=== PATIENT | female | born 1995 | race American Indian/Alaskan Native ===

== ENCOUNTER 2017-02-19 15:01 | Emergency (ER) | payer MEDICAID ==
[2017-02-19 15:39] VITALS: BP 105/69
[2017-02-19 16:19] LABS: Bacteria,Urine 1+ /HPF (Negative); Bilirubin,Urine SM (Negative); Blood,Urine LG (Negative); Mucus,Urine 3+ /HPF; Nitrite,Urine NEG (Negative)
[2017-02-19 16:21] LABS: RBC,Urine > 182.0 /HPF (0.0-6.0)
[2017-02-19 16:22] LABS: HCG Qualitative,Urine Negative (Negative)
[2017-02-19 16:24] LABS: Ictotest,Urine Negative (Negative)
[2017-02-19 16:54] LABS: Basophils % (Auto) 0.4 % (0.0-1.8); Eosinophils % (Auto) 0.2 % (0.0-4.3); Hematocrit 32.4 % (30.3-42.9); Hemoglobin 10.6 gm/dl (10.1-14.3); Lymphocytes % (Auto) 18.4 % (13.4-35.0); Mean Corpuscular HGB Conc 33 % (30-34); Mean Corpuscular Hemoglobin 28 pg (28-32); Mean Corpuscular Volume 85 fl (79-97); Monocytes # (Auto) 0.3 K/mm3 (0.0-0.8); Monocytes % (Auto) 6.2 % (0.0-7.3); Platelet Count 384 K/mm3 (140-440)
[2017-02-19 17:07] LABS: Alanine Aminotransferase 11 units/L (7-56); Albumin 4.1 g/dL (3.9-5); BUN/Creatinine Ratio 40; Blood Urea Nitrogen 20 mg/dL (7-17); Calcium 8.7 mg/dL (8.4-10.2); Hemolysis Index 3
== END 2017-02-19 22:54 | disposition left against medical advice (07) ==
LOC: ED 15:01
DX: Z53.21 Procedure and treatment not carried out due to patient leaving prior to being seen by health care provider (principal)
CPT/HCPCS: 36415; 80053; 81001; 81025; 85025

== ENCOUNTER 2018-03-01 23:23 | Inpatient (IN) | payer SELFPAY ==
[2018-03-02 00:53] LABS: Basophils % (Auto) 0.3 % (0.0-1.8); Hematocrit 32.9 % (30.3-42.9); Hemoglobin 10.9 gm/dl (10.1-14.3); Lymphocytes # (Auto) 0.8 K/mm3 (1.2-5.4); Lymphocytes % (Auto) 6.6 % (13.4-35.0); Mean Corpuscular HGB Conc 33 % (30-34); Mean Corpuscular Volume 86 fl (79-97); Monocytes # (Auto) 0.4 K/mm3 (0.0-0.8); Monocytes % (Auto) 3.5 % (0.0-7.3); Platelet Count 310 K/mm3 (140-440); Red Blood Count 3.81 M/mm3 (3.65-5.03); Red Cell Distribution Width 17.8 % (13.2-15.2)
[2018-03-02 01:08] LABS: Alanine Aminotransferase 9 units/L (7-56); Albumin 4.3 g/dL (3.9-5); BUN/Creatinine Ratio 28; Blood Urea Nitrogen 14 mg/dL (7-17); Calcium 8.9 mg/dL (8.4-10.2); Hemolysis Index 7
--- NOTE | 2018-03-02 03:05 | Emergency Department Report ---
ED General Adult HPI - General Chief complaint: Overdose Stated complaint: POSS OD Time Seen by Provider: 03/02/18 00:17 Source: EMS Mode of arrival: Stretcher Limitations: Other - History of Present Illness Initial comments: She has a 22-year-old female who presents with suicidal ideation. History is limited due to patient being sleepy. Patient was out in traffic and was detained by police due to suicidal ideation. She took 15 Benadryl pills to end her life and took some alcohol with it. Patient was acting erratically in the ER. Discussed with forced control patient will be medical cleared in 6 hours. - Related Data Allergies Allergy/AdvReac Type Severity Reaction Status Date / Time No Known Allergies Allergy Unverified 06/03/15 17:47 ED Review of Systems ROS: Stated complaint: POSS OD Other details as noted in HPI Comment: Unobtainable due to pts medical conditions (patient is too sleepy) Musculoskeletal: denies: joint swelling, arthralgia ED Past Medical Hx - Past Medical History Previous Medical History?: Yes Hx Hypertension: No Hx Diabetes: No Hx Deep Vein Thrombosis: No Hx Renal Disease: No Hx Sickle Cell Disease: No Hx Seizures: No Hx Asthma: No Hx HIV: No Additional medical history: anemic - Surgical History Past Surgical History?: No - Social History Smoking Status: Unknown if ever smoked Substance Use Type: Alcohol ED Physical Exam - General Limitations: Other General appearance: obtunded - Head Head exam: Present: atraumatic, normocephalic - Eye Eye exam: Present: normal appearance - ENT ENT exam: Present: mucous membranes moist - Neck Neck exam: Present: normal inspection - Respiratory Respiratory exam: Present: normal lung sounds bilaterally. Absent: respiratory distress - Cardiovascular Cardiovascular Exam: Present: regular rate, normal rhythm. Absent: systolic murmur, diastolic murmur, rubs, gallop - GI/Abdominal GI/Abdominal exam: Present: soft, normal bowel sounds - Extremities Exam Extremities exam: Present: normal inspection - Back Exam Back exam: Present: normal inspection - Neurological Exam Neurological exam: Present: other (somnolent ) - Psychiatric Psychiatric exam: Present: suicidal ideation - Skin Skin exam: Present: warm, dry, intact, normal color. Absent: rash ED Course Vital Signs 03/02/18 03/02/18 03/02/18 00:00 00:16 00:30 Temperature 99.0 F Pulse Rate 76 85 75 Respiratory 16 16 20 Rate Blood Pressure 97/54 97/54 97/54 O2 Sat by Pulse 98 Oximetry ED Medical Decision Making - Lab Data Result diagrams: 03/02/18 00:30 03/02/18 00:30 Lab Results 03/02/18 03/02/18 03/02/18 Range/Units 00:30 00:30 00:30 WBC 11.5 H (4.5-11.0) K/mm3 RBC 3.81 (3.65-5.03) M/mm3 Hgb 10.9 (10.1-14.3) gm/dl Hct 32.9 (30.3-42.9) % MCV 86 (79-97) fl MCH 29 (28-32) pg MCHC 33 (30-34) % RDW 17.8 H (13.2-15.2) % Plt Count 310 (140-440) K/mm3 Lymph % (Auto) 6.6 L (13.4-35.0) % [place] % (Auto) 3.5 (0.0-7.3) % Eos % (Auto) 0.0 (0.0-4.3) % Baso % (Auto) 0.3 (0.0-1.8) % Lymph # 0.8 L (1.2-5.4) K/mm3 [place] # 0.4 (0.0-0.8) K/mm3 Eos # 0.0 (0.0-0.4) K/mm3 Baso # 0.0 (0.0-0.1) K/mm3 Seg Neutrophils % 89.6 H (40.0-70.0) % Seg Neutrophils # 10.3 H (1.8-7.7) K/mm3 Sodium 139 (137-145) mmol/L Potassium 3.5 L (3.6-5.0) mmol/L Chloride 102.2 (98-107) mmol/L Carbon Dioxide 20 L (22-30) mmol/L Anion Gap 20 mmol/L BUN 14 (7-17) mg/dL Creatinine 0.5 L (0.7-1.2) mg/dL Estimated GFR > 60 ml/min BUN/Creatinine Ratio 28 % Glucose 83 (65-100) mg/dL Calcium 8.9 (8.4-10.2) mg/dL Total Bilirubin 0.20 (0.1-1.2) mg/dL AST 14 (5-40) units/L ALT 9 (7-56) units/L Alkaline Phosphatase 49 (35-129) units/L Total Protein 6.9 (6.3-8.2) g/dL Albumin 4.3 (3.9-5) g/dL Albumin/Globulin Ratio 1.7 % HCG, Qual (Negative) Urine Color (Yellow) Urine Turbidity (Clear) Urine pH (5.0-7.0) Ur Specific [place] (1.003-1.030) Urine Protein (Negative) mg/dL Urine Glucose (UA) (Negative) mg/dL Urine Ketones (Negative) mg/dL Urine Blood (Negative) Urine Nitrite (Negative) Urine Bilirubin (Negative) Urine Urobilinogen (<2.0) mg/dL Ur Leukocyte Esterase (Negative) Urine WBC (Auto) (0.0-6.0) /HPF Urine RBC (Auto) (0.0-6.0) /HPF U Epithel Cells (Auto) (0-13.0) /HPF Urine Mucus /HPF Salicylates < 0.3 L (2.8-20.0) mg/dL Urine Opiates Screen Urine Methadone Screen Acetaminophen (10.0-30.0) ug/mL Ur Barbiturates Screen Ur Phencyclidine Scrn Ur Amphetamines Screen U Benzodiazepines Scrn Urine Cocaine Screen U Marijuana (THC) Screen Drugs of Abuse Note Plasma/Serum Alcohol (0-0.07) % 03/02/18 03/02/18 03/02/18 Range/Units 00:30 00:30 00:30 WBC (4.5-11.0) K/mm3 RBC (3.65-5.03) M/mm3 Hgb (10.1-14.3) gm/dl Hct (30.3-42.9) % MCV (79-97) fl MCH (28-32) pg MCHC (30-34) % RDW (13.2-15.2) % Plt Count (140-440) K/mm3 Lymph % (Auto) (13.4-35.0) % [place] % (Auto) (0.0-7.3) % Eos % (Auto) (0.0-4.3) % Baso % (Auto) (0.0-1.8) % Lymph # (1.2-5.4) K/mm3 [place] # (0.0-0.8) K/mm3 Eos # (0.0-0.4) K/mm3 Baso # (0.0-0.1) K/mm3 Seg Neutrophils % (40.0-70.0) % Seg Neutrophils # (1.8-7.7) K/mm3 Sodium (137-145) mmol/L Potassium (3.6-5.0) mmol/L Chloride (98-107) mmol/L Carbon Dioxide (22-30) mmol/L Anion Gap mmol/L BUN (7-17) mg/dL Creatinine (0.7-1.2) mg/dL Estimated GFR ml/min BUN/Creatinine Ratio % Glucose (65-100) mg/dL Calcium (8.4-10.2) mg/dL Total Bilirubin (0.1-1.2) mg/dL AST (5-40) units/L ALT (7-56) units/L Alkaline Phosphatase (35-129) units/L Total Protein (6.3-8.2) g/dL Albumin (3.9-5) g/dL Albumin/Globulin Ratio % HCG, Qual Negative (Negative) Urine Color (Yellow) Urine Turbidity (Clear) Urine pH (5.0-7.0) Ur Specific [place] (1.003-1.030) Urine Protein (Negative) mg/dL Urine Glucose (UA) (Negative) mg/dL Urine Ketones (Negative) mg/dL Urine Blood (Negative) Urine Nitrite (Negative) Urine Bilirubin (Negative) Urine Urobilinogen (<2.0) mg/dL Ur Leukocyte Esterase (Negative) Urine WBC (Auto) (0.0-6.0) /HPF Urine RBC (Auto) (0.0-6.0) /HPF U Epithel Cells (Auto) (0-13.0) /HPF Urine Mucus /HPF Salicylates (2.8-20.0) mg/dL Urine Opiates Screen Urine Methadone Screen Acetaminophen < 5.0 L (10.0-30.0) ug/mL Ur Barbiturates Screen Ur Phencyclidine Scrn Ur Amphetamines Screen U Benzodiazepines Scrn Urine Cocaine Screen U Marijuana (THC) Screen Drugs of Abuse Note Plasma/Serum Alcohol < 0.01 (0-0.07) % 03/02/18 03/02/18 Range/Units 03:00 03:00 WBC (4.5-11.0) K/mm3 RBC (3.65-5.03) M/mm3 Hgb (10.1-14.3) gm/dl Hct (30.3-42.9) % MCV (79-97) fl MCH (28-32) pg MCHC (30-34) % RDW (13.2-15.2) % Plt Count (140-440) K/mm3 Lymph % (Auto) (13.4-35.0) % [place] % (Auto) (0.0-7.3) % Eos % (Auto) (0.0-4.3) % Baso % (Auto) (0.0-1.8) % Lymph # (1.2-5.4) K/mm3 [place] # (0.0-0.8) K/mm3 Eos # (0.0-0.4) K/mm3 Baso # (0.0-0.1) K/mm3 Seg Neutrophils % (40.0-70.0) % Seg Neutrophils # (1.8-7.7) K/mm3 Sodium (137-145) mmol/L Potassium (3.6-5.0) mmol/L Chloride (98-107) mmol/L Carbon Dioxide (22-30) mmol/L Anion Gap mmol/L BUN (7-17) mg/dL Creatinine (0.7-1.2) mg/dL Estimated GFR ml/min BUN/Creatinine Ratio % Glucose (65-100) mg/dL Calcium (8.4-10.2) mg/dL Total Bilirubin (0.1-1.2) mg/dL AST (5-40) units/L ALT (7-56) units/L Alkaline Phosphatase (35-129) units/L Total Protein (6.3-8.2) g/dL Albumin (3.9-5) g/dL Albumin/Globulin Ratio % HCG, Qual (Negative) Urine Color Yellow (Yellow) Urine Turbidity Clear (Clear) Urine pH 5.0 (5.0-7.0) Ur Specific [place] 1.028 (1.003-1.030) Urine Protein <15 mg/dl (Negative) mg/dL Urine Glucose (UA) Neg (Negative) mg/dL Urine Ketones 20 (Negative) mg/dL Urine Blood Neg (Negative) Urine Nitrite Neg (Negative) Urine Bilirubin Neg (Negative) Urine Urobilinogen 2.0 (<2.0) mg/dL Ur Leukocyte Esterase Neg (Negative) Urine WBC (Auto) 3.0 (0.0-6.0) /HPF Urine RBC (Auto) 2.0 (0.0-6.0) /HPF U Epithel Cells (Auto) 5.0 (0-13.0) /HPF Urine Mucus 2+ /HPF Salicylates (2.8-20.0) mg/dL Urine Opiates Screen Presumptive negative Urine Methadone Screen Presumptive negative Acetaminophen (10.0-30.0) ug/mL Ur Barbiturates Screen Presumptive negative Ur Phencyclidine Scrn Presumptive negative Ur Amphetamines Screen Presumptive negative U Benzodiazepines Scrn Presumptive negative Urine Cocaine Screen Presumptive negative U Marijuana (THC) Screen Presumptive positive Drugs of Abuse Note Disclamer Plasma/Serum Alcohol (0-0.07) % - EKG Data -: EKG Interpreted by Az - EKG Data 03/02/18 04:38 EKG shows sinus arrythmia no ST segment elevation or T-wave inversion normal axis - Medical Decision Making Chief medical diagnosis: Suicidal ideation Differential medical diagnosis: Bipolar disorder, substance induced mood disorder, psychosis, I will sign 1013 on patient although have mental health evaluation CBC BMP urine drug screen urinalysis. Patient has been medically cleared Critical care attestation.: If time is entered above; I have spent that time in minutes in the direct care of this critically ill patient, excluding procedure time. ED Disposition Clinical Impression: Suicidal ideation Overdose Qualifiers: Encounter type: initial encounter Injury intent: intentional self-harm Qualified Code(s): T50.902A - Poisoning by unspecified drugs, medicaments and biological substances, intentional self-harm, initial encounter Disposition: DC/TX-65 PSY HOSP/PSY UNIT Is pt being admited?: No Does the pt Need Aspirin: No Condition: Stable Referrals: PRIMARY CARE, [Primary Care Provider] - 3-5 Days
[2018-03-02 03:20] LABS: Bilirubin,Urine NEG (Negative); Blood,Urine NEG (Negative); Color,Urine Yellow (Yellow); Mucus,Urine 2+ /HPF; Protein,Urine <15 mg/dL mg/dL (Negative)
[2018-03-02 03:26] LABS: Amphetamine Screen,Urine PRESUMPTIVE NEGATIVE; Benzodiazepines Screen,Urine PRESUMPTIVE NEGATIVE; Cocaine Screen,Urine PRESUMPTIVE NEGATIVE; Methadone Screen,Urine PRESUMPTIVE NEGATIVE; Opiate Screen,Urine PRESUMPTIVE NEGATIVE
[2018-03-02 03:58] LABS: Cannabinoid Screen,Urine PRESUMPTIVE POSITIVE
[2018-03-02] MEDS ORDERED: NACL 0.9% 1000 ML 1,000 ML IV ONE ×3 (07:30→12:02)
[2018-03-02] MEDS ORDERED: NACL 0.9% 1000 ML 1,000 ML ONE (11:32)
--- NOTE | 2018-03-02 12:02 | Emergency Department Report ---
Shu Doc - Documentation Documentation: Patient has persistent hypertension brought to my attention by the nurse. I did recheck the blood pressure my and found it to be 86 systolic. The patient is very received 2 L of IV fluid. I'm going to give her a third liter. She is a bit pale but mentating normal. She doesn't have any signs of peripheral vasoconstriction. She is warm. She is alert. She has no complaints. Patient tells me she took 15 of an unknown medication from the bathroom with intent of self-harm. On exam she is in no distress. Cardiovascular exam is normal. Respiratory exam is normal. GI abdomen soft and nontender. Extremities are unremarkable tenderness no edema neurological exam is intact Diagnostic studies I have reviewed the patient's previous studies. She has a CO2 of 20 otherwise her labs are largely unremarkable. Repeat studies have been ordered and expanded. An EKG shows normal QT interval. On the monitor the patient has slightly bradycardic rate into the mid 60s. These findings are not particularly compatible with a Benadryl overdose. It is uncertain as to what the patient actually took. Impression Persistent hypotension Overdose Plan I have discussed the findings with Dr. Burger hospitalist. He has requested admission to the patient to telemetry. She cannot be yet medically cleared at this time.
[2018-03-02 12:33] LABS: Basophils % (Auto) 0.5 % (0.0-1.8); Eosinophils % (Auto) 0.6 % (0.0-4.3); Hematocrit 32.4 % (30.3-42.9); Hemoglobin 10.5 gm/dl (10.1-14.3); Lymphocytes # (Auto) 1.6 K/mm3 (1.2-5.4); Lymphocytes % (Auto) 22.5 % (13.4-35.0); Mean Corpuscular HGB Conc 33 % (30-34); Mean Corpuscular Volume 87 fl (79-97); Monocytes # (Auto) 0.5 K/mm3 (0.0-0.8); Monocytes % (Auto) 7.3 % (0.0-7.3); Platelet Count 294 K/mm3 (140-440); Red Blood Count 3.71 M/mm3 (3.65-5.03)
[2018-03-02 12:45] LABS: INR 1.07 (0.87-1.13)
[2018-03-02 12:47] LABS: Partial Thromboplastin Time 26.9 Sec. (24.2-36.6)
[2018-03-02 12:56] LABS: Alanine Aminotransferase 9 units/L (7-56); Albumin 3.8 g/dL (3.9-5); BUN/Creatinine Ratio 32; Blood Urea Nitrogen 16 mg/dL (7-17); Hemolysis Index 7
[2018-03-02 13:10] LABS: Bilirubin,Direct < 0.2 mg/dL (0-0.2); Creatine Kinase MB < 1.0 ng/mL (0.0-4.0)
--- NOTE | 2018-03-02 22:05 | Event Note ---
Date: 03/02/18 See dictated H/p in reports Benadryl overdose Hypotension
[2018-03-02] MEDS ORDERED: DILAUDID IV PRN (23:06)
[2018-03-02] MEDS ORDERED: SODIUM CHLORIDE FLUSH SYRINGE 10 ML IV PRN (23:06)
[2018-03-02] MEDS ORDERED: ZOFRAN IV PRN (23:06)
[2018-03-02] MEDS ORDERED: TYLENOL PO PRN (23:06)
[2018-03-02] MEDS ORDERED: K-DUR PO ONE (23:40)
--- NOTE | 2018-03-03 00:03 | History and Physical Report ---
CHIEF COMPLAINT: 1. Suicidal ideation. 2. Benadryl overdose. HISTORY OF PRESENT ILLNESS: A 22-year-old comes in for suicidal ideation and apparently took 15 Benadryl pills to end her life and took some alcohol with it. Since then, the patient has been sleepy. The patient was detained by police due to sobbing in the car and sent to the Emergency Room for suicidal ideation and Benadryl overdose. The patient was acting erratically in the Emergency Room. The patient was in the ER for medical clearance to go to psych facility, but did not happen. The patient is being admitted for one-on-one watch on 11/23/2017 for Benadryl overdose. In the Emergency Room, the patient had a low blood pressure, which was corrected with IV fluids. PAST MEDICAL HISTORY: No chronic disease. SURGICAL HISTORY: None. SOCIAL HISTORY: Does not smoke. Alcohol occasionally. FAMILY HISTORY: Hypertension. REVIEW OF SYSTEMS: Significant for excessive drowsiness and erratic behavior. Otherwise, review of systems is essentially negative. No palpitations, no chest pain. No passing out. PHYSICAL EXAMINATION: GENERAL: Young female, cooperative during examination, tearful during my examination. VITAL SIGNS: Blood pressure was 95/50, later it was 104/56, sats are 100%, temperature 97.4, pulse is 60. HEENT: Unremarkable. Pupils equal and reactive. NECK: Supple, no lymphadenopathy, no thyromegaly. LUNGS: Clear to auscultation and percussion. Good air entry. CARDIOVASCULAR: S1, S2 heard. No gallop, no murmur, no rub. Apical impulse in left fifth intercostal space and midclavicular line. ABDOMEN: Soft and benign. No hepatosplenomegaly. No guarding, no rigidity. Hernial orifices were normal. EXTREMITIES: Good pedal pulses. No pedal edema. CENTRAL NERVOUS SYSTEM: Alert and oriented x 4, nonfocal exam. LABORATORY DATA: Potassium is slightly low at 3.5. DIAGNOSTIC DATA: EKG shows arrhythmia, no ST segment elevation or T-wave inversion. Normal axis. ASSESSMENT AND PLAN: 1. Benadryl overdose. The patient admitted for IV fluids, otherwise, the patient is medically cleared. The patient was drowsy, but it has been improving. 2. Hypotension. IV fluids for the time being. 3. Suicidal ideation. Mental health consult requested. 4. Deep venous thrombosis prophylaxis, Lovenox 40 mg subcutaneous daily. 5. Hypokalemia, supplemented. JOB# [id number] VSAustin/NTS
[2018-03-03] MEDS: SODIUM CHLORIDE FLUSH SYRINGE 10 ML IV SCH ×3 (00:21→22:16)
--- NOTE | 2018-03-03 08:16 | Progress Note ---
Assessment and Plan Assessment and plan: -Suidicial Ideation and attempt via drug overdose with Benadryl: await psych evaluation -Bradycardia most likely physiological, patient is thin and young -Hypotension, resolved: continue to monitor Medical Cleared to go to inpatient psych - Patient Problems (1) Overdose Current Visit: Yes Status: Acute Qualifiers: Encounter type: subsequent encounter Injury intent: intentional self-harm Qualified Code(s): T50.902D - Poisoning by unspecified drugs, medicaments and biological substances, intentional self-harm, subsequent encounter (2) Suicidal ideation Current Visit: Yes Status: Acute History Interval history: Patient seen and examined. Follow up on SI/SA with drug overdose. She denies SI. She says she doesn't remember taking benadryl. Hospitalist Physical - Constitutional Vitals: Temp Pulse Resp BP Pulse Ox 98.1 F 53 L 4 L 105/54 99 03/03/18 06:33 03/03/18 06:33 03/03/18 06:33 03/03/18 06:33 03/03/18 06:33 General appearance: Present: no acute distress - EENT Eyes: Present: PERRL, EOM intact ENT: hearing intact, clear oral mucosa - Neck Neck: Present: supple, normal ROM - Respiratory Respiratory effort: normal Respiratory: bilateral: CTA - Cardiovascular Rhythm: regular Heart Sounds: Present: S1 & S2 - Extremities Extremities: no ischemia Peripheral Pulses: within normal limits - Abdominal General gastrointestinal: soft, non-tender, non-distended, normal bowel sounds - Integumentary Integumentary: Present: clear - Psychiatric Psychiatric: appropriate mood/affect, no intact judgment & insight, cooperative - Neurologic Neurologic: CNII-XII intact, no focal deficits, moves all extremities - Allied Health Allied health notes reviewed: nursing Results - Labs CBC & Chem 7: 03/02/18 12:24 03/02/18 12:24 Labs: Laboratory Last Values WBC 6.9 K/mm3 (4.5-11.0) 03/02/18 12:24 RBC 3.71 M/mm3 (3.65-5.03) 03/02/18 12:24 Hgb 10.5 gm/dl (10.1-14.3) 03/02/18 12:24 Hct 32.4 % (30.3-42.9) 03/02/18 12:24 MCV 87 fl (79-97) 03/02/18 12:24 MCH 28 pg (28-32) 03/02/18 12:24 MCHC 33 % (30-34) 03/02/18 12:24 RDW 18.0 % (13.2-15.2) H 03/02/18 12:24 Plt Count 294 K/mm3 (140-440) 03/02/18 12:24 Lymph % (Auto) 22.5 % (13.4-35.0) 03/02/18 12:24 [place] % (Auto) 7.3 % (0.0-7.3) 03/02/18 12:24 Eos % (Auto) 0.6 % (0.0-4.3) 03/02/18 12:24 Baso % (Auto) 0.5 % (0.0-1.8) 03/02/18 12:24 Lymph # 1.6 K/mm3 (1.2-5.4) 03/02/18 12:24 [place] # 0.5 K/mm3 (0.0-0.8) 03/02/18 12:24 Eos # 0.0 K/mm3 (0.0-0.4) 03/02/18 12:24 Baso # 0.0 K/mm3 (0.0-0.1) 03/02/18 12:24 Seg Neutrophils % 69.1 % (40.0-70.0) 03/02/18 12:24 Seg Neutrophils # 4.8 K/mm3 (1.8-7.7) 03/02/18 12:24 PT 14.3 Sec. (12.2-14.9) 03/02/18 12:24 INR 1.07 (0.87-1.13) 03/02/18 12:24 APTT 26.9 Sec. (24.2-36.6) 03/02/18 12:24 Sodium 142 mmol/L (137-145) 03/02/18 12:24 Potassium 3.8 mmol/L (3.6-5.0) 03/02/18 12:24 Chloride 108.0 mmol/L (98-107) H 03/02/18 12:24 Carbon Dioxide 21 mmol/L (22-30) L 03/02/18 12:24 Anion Gap 17 mmol/L 03/02/18 12:24 BUN 16 mg/dL (7-17) 03/02/18 12:24 Creatinine 0.5 mg/dL (0.7-1.2) L 03/02/18 12:24 Estimated GFR > 60 ml/min 03/02/18 12:24 BUN/Creatinine Ratio 32 % 03/02/18 12:24 Glucose 87 mg/dL (65-100) 03/02/18 12:24 Lactic Acid 1.20 mmol/L (0.7-2.0) 03/02/18 12:24 Calcium 8.0 mg/dL (8.4-10.2) L 03/02/18 12:24 Magnesium 1.70 mg/dL (1.7-2.3) 03/02/18 12:24 Total Bilirubin 0.30 mg/dL (0.1-1.2) 03/02/18 12:24 Direct Bilirubin < 0.2 mg/dL (0-0.2) 03/02/18 12:24 Indirect Bilirubin 0.1 mg/dL 03/02/18 12:24 AST 15 units/L (5-40) 03/02/18 12:24 ALT 9 units/L (7-56) 03/02/18 12:24 Alkaline Phosphatase 47 units/L (35-129) 03/02/18 12:24 Total Creatine Kinase 127 units/L (30-135) 03/02/18 12:24 CK-MB (CK-2) < 1.0 ng/mL (0.0-4.0) 03/02/18 12:24 CK-MB (CK-2) Rel Index 0.7 (0-4) 03/02/18 12:24 NT-Pro-B Natriuret Pep 29.92 pg/mL (0-450) 03/02/18 12:24 Total Protein 6.3 g/dL (6.3-8.2) 03/02/18 12:24 Albumin 3.8 g/dL (3.9-5) L 03/02/18 12:24 Albumin/Globulin Ratio 1.5 % 03/02/18 12:24 HCG, Qual Negative (Negative) 03/02/18 00:30 Urine Color Yellow (Yellow) 03/02/18 03:00 Urine Turbidity Clear (Clear) 03/02/18 03:00 Urine pH 5.0 (5.0-7.0) 03/02/18 03:00 Ur Specific [place] 1.028 (1.003-1.030) 03/02/18 03:00 Urine Protein <15 mg/dl mg/dL (Negative) 03/02/18 03:00 Urine Glucose (UA) Neg mg/dL (Negative) 03/02/18 03:00 Urine Ketones 20 mg/dL (Negative) 03/02/18 03:00 Urine Blood Neg (Negative) 03/02/18 03:00 Urine Nitrite Neg (Negative) 03/02/18 03:00 Urine Bilirubin Neg (Negative) 03/02/18 03:00 Urine Urobilinogen 2.0 mg/dL (<2.0) 03/02/18 03:00 Ur Leukocyte Esterase Neg (Negative) 03/02/18 03:00 Urine WBC (Auto) 3.0 /HPF (0.0-6.0) 03/02/18 03:00 Urine RBC (Auto) 2.0 /HPF (0.0-6.0) 03/02/18 03:00 U Epithel Cells (Auto) 5.0 /HPF (0-13.0) 03/02/18 03:00 Urine Mucus 2+ /HPF 03/02/18 03:00 Salicylates < 0.3 mg/dL (2.8-20.0) L 03/02/18 00:30 Urine Opiates Screen Presumptive negative 03/02/18 03:00 Urine Methadone Screen Presumptive negative 03/02/18 03:00 Acetaminophen < 5.0 ug/mL (10.0-30.0) L 03/02/18 00:30 Ur Barbiturates Screen Presumptive negative 03/02/18 03:00 Ur Phencyclidine Scrn Presumptive negative 03/02/18 03:00 Ur Amphetamines Screen Presumptive negative 03/02/18 03:00 U Benzodiazepines Scrn Presumptive negative 03/02/18 03:00 Urine Cocaine Screen Presumptive negative 03/02/18 03:00 U Marijuana (THC) Screen Presumptive positive 03/02/18 03:00 Drugs of Abuse Note Disclamer 03/02/18 03:00 Plasma/Serum Alcohol < 0.01 % (0-0.07) 03/02/18 00:30
--- NOTE | 2018-03-03 12:08 | Consultation ---
History of Present Illness - Reason for Consult Consult date: 03/03/18 Reason for consult: Mental Health Evaluation Requesting physician: RODDY RIVERA - Chief Complaint Chief complaint: "I did take the pills" - History of Present Psychiatric Illness 22-year-old AA female who presented to the ER for possible SI's and suicide attempt. Today the patient is calm, but minimize her actions during the as sessment. She stated that she was "partying" and took several Benadryl pills. She stated that she do not know why she swallowed the pills when asked. She did state that she was drinking prior to swallowing the pills. She stated that she was having a good time and that's all it was. She denies a mood do, but acknowledged smoking marijuana often. She denies SI/HI's and AVH's. She denies erratic sleep and a poor appetite. She alcohol consumption (etoh). Medications and Allergies Allergies Allergy/AdvReac Type Severity Reaction Status Date / Time No Known Allergies Allergy Unverified 06/03/15 17:47 Active Meds: Active Medications Acetaminophen (Tylenol) 650 mg PO Q4H PRN PRN Reason: Pain MILD(1-3)/Fever >100.5/LEE Famotidine (Pepcid) 20 mg PO BID [facility] Hydromorphone HCl (Dilaudid) 0.25 mg IV Q3H PRN PRN Reason: Pain, Moderate (4-6) Ondansetron HCl (Zofran) 4 mg IV Q8H PRN PRN Reason: Nausea And Vomiting Sodium Chloride (Sodium Chloride Flush Syringe 10 Ml) 10 ml IV BID [facility] Last Admin: 03/03/18 00:21 Dose: 10 ml Documented by: Sodium Chloride (Sodium Chloride Flush Syringe 10 Ml) 10 ml IV PRN PRN PRN Reason: LINE FLUSH Past psychiatric history - Past Medical History Past Medical History: No medical history Past Surgical History: No surgical history - past Psychiatric treatment and history psychiatric treatment history: Denies a psy hx and a fam psy hx. - Social History Social history: lives with family Mental Status Exam - Vital signs Last Vital Signs Temp 98.4 F 03/03/18 07:16 Pulse 53 L 03/03/18 07:16 Resp 16 03/03/18 07:16 BP 83/50 03/03/18 07:16 Pulse Ox 100 03/03/18 07:16 - Exam Narrative exam: MSE: Appearance: calm Behavior: regular eye contact Speech: regular rate and tone Mood: "okay" Affect: congruent to mood Thought Process: circumstantial Thought Content: denies SI/HI's and AVH's Motor Activity: lying in bed Cognition: A/O x3 Insight: variable Judgment: variable Results Result Diagrams: 03/02/18 12:24 03/02/18 12:24 Abnormal lab results 03/02/18 03/02/18 Range/Units 12:24 12:24 RDW 18.0 H (13.2-15.2) % Chloride 108.0 H (98-107) mmol/L Carbon Dioxide 21 L (22-30) mmol/L Creatinine 0.5 L (0.7-1.2) mg/dL Calcium 8.0 L (8.4-10.2) mg/dL Albumin 3.8 L (3.9-5) g/dL All other labs normal. Assessment and Plan Assessment and plan: Impression: Unintentional vs Intentional overdose. Cannabis Use DO. Today the patient is calm, but minimize her actions during the assessment. DDx: Substance Induced Mood DO Recommendation/Plan: Continue 1013 and gather collateral information to help determine proper treatment. Dispo: Once collateral information is gathered, proper dispo will be determined. Will staff with Uvaldo Ashraf.
[2018-03-03] MEDS: PEPCID PO SCH ×2 (15:08→22:15)
[2018-03-04] MEDS: SODIUM CHLORIDE FLUSH SYRINGE 10 ML IV SCH ×2 (09:49→21:00)
[2018-03-04] MEDS: PEPCID PO SCH ×2 (09:49→21:00)
--- NOTE | 2018-03-04 12:04 | Progress Note ---
Assessment and Plan Assessment and plan: -Suidicial Ideation and attempt via drug overdose with Benadryl: await psych evaluation -Bradycardia most likely physiological, patient is thin and young -Hypotension, resolved: continue to monitor Medical Cleared to go to inpatient psych - Patient Problems (1) Overdose Current Visit: Yes Status: Acute Qualifiers: Encounter type: subsequent encounter Injury intent: intentional self-harm Qualified Code(s): T50.902D - Poisoning by unspecified drugs, medicaments and biological substances, intentional self-harm, subsequent encounter (2) Suicidal ideation Current Visit: Yes Status: Acute History Interval history: Patient seen and examined. Follow up on SI/SA with drug overdose. She denies SI. She says she doesn't remember taking benadryl. Hospitalist Physical - Physical exam Narrative exam: HR was 89 on telemetry Gen: WDWN, NAD, Awake, Alert, Orientated HEENT: NCAT, EOMI, PERRL, OP Clear Neck: supple, no adenopathy, no thyromegaly, no JVD CVS/Heart: RRR, normal S1S2, pulses present bilaterally Chest/Lungs: CTA B, Symmetrical chest expansion, good air entry bilaterally GI/Abdomen: soft, NTND, good bowel sounds, no guarding or rebound /Bladder: no suprapubic tenderness, no CVA or paraspinal tenderness Extermity/Skin: no c/c/e, no obvious rash MSK: FROM x 4 Neuro: CN 2-12 grossly intact, no new focal deficits Psych: calm - Constitutional Vitals: Temp Pulse Resp BP Pulse Ox 98.0 F 54 L 18 90/49 99 03/03/18 23:30 03/04/18 07:33 03/03/18 23:30 03/03/18 23:30 03/03/18 23:30 General appearance: Present: no acute distress Results - Labs CBC & Chem 7: 03/02/18 12:24 03/02/18 12:24 Labs: Laboratory Last Values WBC 6.9 K/mm3 (4.5-11.0) 03/02/18 12:24 RBC 3.71 M/mm3 (3.65-5.03) 03/02/18 12:24 Hgb 10.5 gm/dl (10.1-14.3) 03/02/18 12:24 Hct 32.4 % (30.3-42.9) 03/02/18 12:24 MCV 87 fl (79-97) 03/02/18 12:24 MCH 28 pg (28-32) 03/02/18 12:24 MCHC 33 % (30-34) 03/02/18 12:24 RDW 18.0 % (13.2-15.2) H 03/02/18 12:24 Plt Count 294 K/mm3 (140-440) 03/02/18 12:24 Lymph % (Auto) 22.5 % (13.4-35.0) 03/02/18 12:24 [place] % (Auto) 7.3 % (0.0-7.3) 03/02/18 12:24 Eos % (Auto) 0.6 % (0.0-4.3) 03/02/18 12:24 Baso % (Auto) 0.5 % (0.0-1.8) 03/02/18 12:24 Lymph # 1.6 K/mm3 (1.2-5.4) 03/02/18 12:24 [place] # 0.5 K/mm3 (0.0-0.8) 03/02/18 12:24 Eos # 0.0 K/mm3 (0.0-0.4) 03/02/18 12:24 Baso # 0.0 K/mm3 (0.0-0.1) 03/02/18 12:24 Seg Neutrophils % 69.1 % (40.0-70.0) 03/02/18 12:24 Seg Neutrophils # 4.8 K/mm3 (1.8-7.7) 03/02/18 12:24 PT 14.3 Sec. (12.2-14.9) 03/02/18 12:24 INR 1.07 (0.87-1.13) 03/02/18 12:24 APTT 26.9 Sec. (24.2-36.6) 03/02/18 12:24 Sodium 142 mmol/L (137-145) 03/02/18 12:24 Potassium 3.8 mmol/L (3.6-5.0) 03/02/18 12:24 Chloride 108.0 mmol/L (98-107) H 03/02/18 12:24 Carbon Dioxide 21 mmol/L (22-30) L 03/02/18 12:24 Anion Gap 17 mmol/L 03/02/18 12:24 BUN 16 mg/dL (7-17) 03/02/18 12:24 Creatinine 0.5 mg/dL (0.7-1.2) L 03/02/18 12:24 Estimated GFR > 60 ml/min 03/02/18 12:24 BUN/Creatinine Ratio 32 % 03/02/18 12:24 Glucose 87 mg/dL (65-100) 03/02/18 12:24 Lactic Acid 1.20 mmol/L (0.7-2.0) 03/02/18 12:24 Calcium 8.0 mg/dL (8.4-10.2) L 03/02/18 12:24 Magnesium 1.70 mg/dL (1.7-2.3) 03/02/18 12:24 Total Bilirubin 0.30 mg/dL (0.1-1.2) 03/02/18 12:24 Direct Bilirubin < 0.2 mg/dL (0-0.2) 03/02/18 12:24 Indirect Bilirubin 0.1 mg/dL 03/02/18 12:24 AST 15 units/L (5-40) 03/02/18 12:24 ALT 9 units/L (7-56) 03/02/18 12:24 Alkaline Phosphatase 47 units/L (35-129) 03/02/18 12:24 Total Creatine Kinase 127 units/L (30-135) 03/02/18 12:24 CK-MB (CK-2) < 1.0 ng/mL (0.0-4.0) 03/02/18 12:24 CK-MB (CK-2) Rel Index 0.7 (0-4) 03/02/18 12:24 NT-Pro-B Natriuret Pep 29.92 pg/mL (0-450) 03/02/18 12:24 Total Protein 6.3 g/dL (6.3-8.2) 03/02/18 12:24 Albumin 3.8 g/dL (3.9-5) L 03/02/18 12:24 Albumin/Globulin Ratio 1.5 % 03/02/18 12:24 HCG, Qual Negative (Negative) 03/02/18 00:30 Urine Color Yellow (Yellow) 03/02/18 03:00 Urine Turbidity Clear (Clear) 03/02/18 03:00 Urine pH 5.0 (5.0-7.0) 03/02/18 03:00 Ur Specific [place] 1.028 (1.003-1.030) 03/02/18 03:00 Urine Protein <15 mg/dl mg/dL (Negative) 03/02/18 03:00 Urine Glucose (UA) Neg mg/dL (Negative) 03/02/18 03:00 Urine Ketones 20 mg/dL (Negative) 03/02/18 03:00 Urine Blood Neg (Negative) 03/02/18 03:00 Urine Nitrite Neg (Negative) 03/02/18 03:00 Urine Bilirubin Neg (Negative) 03/02/18 03:00 Urine Urobilinogen 2.0 mg/dL (<2.0) 03/02/18 03:00 Ur Leukocyte Esterase Neg (Negative) 03/02/18 03:00 Urine WBC (Auto) 3.0 /HPF (0.0-6.0) 03/02/18 03:00 Urine RBC (Auto) 2.0 /HPF (0.0-6.0) 03/02/18 03:00 U Epithel Cells (Auto) 5.0 /HPF (0-13.0) 03/02/18 03:00 Urine Mucus 2+ /HPF 03/02/18 03:00 Salicylates < 0.3 mg/dL (2.8-20.0) L 03/02/18 00:30 Urine Opiates Screen Presumptive negative 03/02/18 03:00 Urine Methadone Screen Presumptive negative 03/02/18 03:00 Acetaminophen < 5.0 ug/mL (10.0-30.0) L 03/02/18 00:30 Ur Barbiturates Screen Presumptive negative 03/02/18 03:00 Ur Phencyclidine Scrn Presumptive negative 03/02/18 03:00 Ur Amphetamines Screen Presumptive negative 03/02/18 03:00 U Benzodiazepines Scrn Presumptive negative 03/02/18 03:00 Urine Cocaine Screen Presumptive negative 03/02/18 03:00 U Marijuana (THC) Screen Presumptive positive 03/02/18 03:00 Drugs of Abuse Note Disclamer 03/02/18 03:00 Plasma/Serum Alcohol < 0.01 % (0-0.07) 03/02/18 00:30
[2018-03-04] MEDS ORDERED: NORCO 5/325 PO PRN (12:07)
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
[2018-03-05] MEDS: SODIUM CHLORIDE FLUSH SYRINGE 10 ML IV SCH ×2 (10:08→21:41)
[2018-03-05] MEDS: PEPCID PO SCH ×2 (10:08→21:05)
--- NOTE | 2018-03-05 14:40 | Progress Note ---
Subjective - Reason for Consult Consult date: 03/05/18 Reason for consult: Psychiatric Follow-up Evaluation - Chief Complaint Chief complaint: "I feel good" Patient is a 22-year-old AA female who presented to the ER for possible SI's and suicide attempt. Today the patient is calm and cooperative during the assessment. Per sitter patient's behavior has been appropriate. No suicidal/homicidal gestures. Patient states, " I feel good. I'm ready to go home and see my son. Since I've been here, I've had time to think about my actions. I now know that I need to stay away from my baby's father if he has the power to make me do what I did." On 03-04-18 patient seen writing in journal about past experiences by QUINTEN Busch. She reports that her coping skills are : rapping, singing, and writing. Patient denies SI/HI's, hallucinations, and delusions. Patient is in no imminent danger to self/others. She is adamant that she took the pills to get her boyfriend's attention, not to kill herself. She do not want to take medications at this time, but is willing to see a therapist. Mental Status Exam - Vital signs Last Vital Signs Temp 98.2 F 03/05/18 11:57 Pulse 57 L 03/05/18 11:57 Resp 18 03/05/18 11:57 BP 100/49 03/05/18 11:57 Pulse Ox 100 03/05/18 11:57 - Exam Narrative exam: Mental Status Exam: Appearance: calm, cooperative Behavior: regular eye contact Speech: regular rate and tone Mood: "I'm in a good mood" Affect: congruent to mood Thought Process: logical Thought Content: denies SI/HI's, AVH's, and delusions Motor Activity: lying in bed Cognition: A/O x3 Insight: fair Judgment: fair Assessment and Plan Impression: MDD, Single episode. Intentional overdose. Cannabis Use DO. Today the patient is calm and cooperative during the assessment. She denies SI/HI's, A/VH's, and delusions. She is in no imminent danger to self/others. Discussed c oping skills and follow-up appointments. Per patient and sister she has no access to any weapons. DDx: Substance Induced Mood DO Recommendation/Plan: Will rescind 1013. Discussed risk/benefits of antidepressants, but the patient prefers talk therapy at this time. Completed suicide risk assessment and safety contract ( JULIO C Del Toro) . Provider called the patient's mother Tianna Bustillos at [phone] at 5:26pm, 5:28pm, and 5:30pm. No answer. Provider contacted patient's sister, Yanely Allen at [phone]. Patient is NOT to return to baby's father home. Patient can discharge to sister's home Yanely Allen. Suicide Risk Assessment I. This screening and assessment is based on information collected from the following sources: II. SUICIDE RISK SCREENING (within last 30 days): A.) Suicidal thoughts/behaviors: Yes SUICIDE RISK ASSESSMENT III. FACTORS THAT INCREASE RISK: A.) Demographic and Substance Use Factors: Yes (Marijuana, Cocaine (Hx)) B.) Current/Recent Factors (within past 3 months): Psychosocial/Environmental Factors: Life Stressors Physical Illness: None Cognitive/Psychological Factors: None C.) Historical Factors: None D.) Diagnostic/Symptom/Treatment Factors: None E.) Acute Risk Factor Severity (DESC; MILD/MOD/SEVERE): Mild Other factors for this individual that increase risk: None IV. FACTORS THAT DECREASE RISK: Resilience/Protective Factors: Patient want to decrease her stress and stop using recreational drugs Other factors for this individual that decrease risk: Patient denies a desire to harm self V. Clinician's Formulation of Risk and Determination of level of Care: Patient is a 22-year-old female who presented to the ER for possible SI's and suicide attempt. Today the patient is calm and cooperative during the assessment. She stated that she was "partying" and took several Benadryl pills. She stated that she do not know why she swallowed the pills when asked. She did state that she was drinking prior to swallowing the pills. She stated that she was having a good time and that's all it was. She denies a mood do, but acknowledged smoking marijuana often. She denies SI/HI's and AVH's. She denies erratic sleep and a poor appetite. She alcohol consumption (etoh). Since being hospitalized the patient has consistently denied the desire to harm herself. Additionally, she has become insightful about how to better address her current issues. The patient is not impaired by substance. She is able to take care of her ADLs and is not at imminent risk of harm to self or others. Consequently, it is the opinion of the treatment team that the patient is at low risk of suicide and does not meet criteria to continue an involuntary ps ychiatric hold. Estimation of Imminent Risk: Low due to the above explanation. Determination of Level of Care based on Suicide Risk: Outpatient follow-up. Narrative description of clinical reasoning. Given the fact that the patient is willing to engage in outpatient/rehab services care and has a supportive network (mother/father), it is reasonable to expect that the patient will seek services. Furthermore, the patient appears future oriented and denies that her intention was to end her life. She is regretful of the decision and has several things in his life to look forward to. At this current time, she is not impulsive and does not have any risk factors to increase the likelihood of her impulsive behavior. Therefore, it is reasonable to expect that the patient will engage in outpat ient/rehab services which will reduce further unsafe behaviors. . Plan and Interventions based on Suicide Risk: This patient will likely be stepped down to an outpatient mental health center in the community upon discharge and follow-up within 7 days of her discharge from the hospital. VII. Discharge/After Hours Support Plan: Patient can return back to the ER, call 911 or crisis line if symptoms of depression, anxiety, suicidality return. Patient has consented to a safety contract. Disposition: Will rescind 1013. Patient will follow up with [facility] for outpatient psychiatric services. Staffed with Dr. Geovanny Ashraf.
--- NOTE | 2018-03-06 07:33 | Progress Note ---
Subjective - Reason for Consult Consult date: 03/06/18 Reason for consult: Psychiatry Follow-up - Chief Complaint Chief complaint: "[place]" Patient is a 22-year-old AA female who presented to the ER for possible SI's and suicide attempt. Today the patient is calm and cooperative during the assessment. She was informed that her 1013 was rescinded. She stated that she will reside with her sister Yanely Allen when discharged. She denies SI/HI's and AVH's. Mental Status Exam - Vital signs Last Vital Signs Temp 98.0 F 03/06/18 06:07 Pulse 46 L 03/06/18 06:07 Resp 12 03/06/18 06:07 BP 101/62 03/06/18 06:07 Pulse Ox 99 03/06/18 06:07 - Exam Narrative exam: MSE: Appearance: calm, cooperative Behavior: regular eye contact Speech: regular rate and tone Mood: "okay" Affect: congruent to mood Thought Process: logical Thought Content: denies SI/HI's and AVH's Motor Activity: lying in bed Cognition: A/O x3 Insight: appropriate Judgment: appropriate Assessment and Plan Impression: MDD, Single episode.Intentional overdose. Cannabis Use DO. Today the patient is calm and cooperative during the assessment. The patient is no threat to self. DDx: Substance Induced Mood DO Recommendation/Plan: 1013 rescinded, suicide risk assessment, and safety contract completed 03/05/2018. Discussed risk/benefits of antidepressants, but the patient prefers talk therapy at this time. Dispo: The patient can follow up with [facility] for outpatient psy services (therapy). Will staff with Dr Melchor.
--- NOTE | 2018-03-06 09:37 | Discharge Summary ---
Providers - Providers Date of Admission: 03/02/18 14:36 Date of discharge: 03/06/18 Attending physician: YASHIRA MENDOZA 03/02/18 23:07 Consult to Mental Health [CONS] Routine Reason For Exam: Benadryl overdose Place consult to:: y Notified:: soto Phone number called:: [phone] Was contact made?: Yes If yes, spoke with:: soto Time called:: 08:21 Primary care physician: AIR CONDITIONING TECHNICIAN Hospitalization Condition: Good Hospital course: Assessment and Plan Impression: MDD, Single episode.Intentional overdose. Cannabis Use DO. Today the patient is calm and cooperative during the assessment. The patient is no threat to self. DDx: Substance Induced Mood DO Recommendation/Plan: 1013 rescinded, suicide risk assessment, and safety contract completed 03/05/2018. Discussed risk/benefits of antidepressants, but the patient prefers talk therapy at this time. Dispo: The patient can follow up with [facility] for outpatient psy services (therapy). Will staff with Dr Melchor. Medically stable for dischaarge Patient counselled about Depression and Marijuana use. Disposition: DC-01 TO HOME OR SELFCARE Core Measure Documentation - Palliative Care Palliative Care/ Comfort Measures: Not Applicable - Core Measures Any of the following diagnoses?: none Exam - Constitutional Vitals: Temp Pulse Resp BP Pulse Ox 98.0 F 46 L 12 101/62 99 03/06/18 06:07 03/06/18 06:07 03/06/18 06:07 03/06/18 06:07 03/06/18 06:07 General appearance: Present: no acute distress, well-nourished - EENT Eyes: Present: PERRL ENT: hearing intact, clear oral mucosa - Neck Neck: Present: supple, normal ROM - Respiratory Respiratory effort: normal Respiratory: bilateral: CTA - Cardiovascular Heart rate: 78 Rhythm: regular Heart Sounds: Present: S1 & S2. Absent: rub, click - Extremities Extremities: no ischemia, pulses intact, pulses symmetrical, No edema Peripheral Pulses: within normal limits - Abdominal General gastrointestinal: Present: soft, non-tender, non-distended, normal bowel sounds Female genitourinary: Present: normal - Integumentary Integumentary: Present: clear, warm, dry - Musculoskeletal Musculoskeletal: gait normal, strength equal bilaterally - Psychiatric Psychiatric: appropriate mood/affect, intact judgment & insight, memory intact, cooperative - Neurologic Neurologic: CNII-XII intact, moves all extremities - Allied Health Allied health notes reviewed: nursing, case management Plan Activity: no restrictions Diet: regular Follow up with: PRIMARY CARE, [Primary Care Provider] - 3-5 Days
[2018-03-06] MEDS: PEPCID PO SCH (09:46)
[2018-03-06] MEDS: SODIUM CHLORIDE FLUSH SYRINGE 10 ML IV SCH (09:46)
[2018-03-06 11:24] VITALS: BP 115/70
== END 2018-03-06 11:45 | disposition home or self-care (01) | DRG 918 ==
LOC: ED 23:23 → 4A 03-02 14:36 → 3A 03-04 16:29
PROVIDERS: ADMIT Internal Medicine; ATTEND Internal Medicine
DX: T45.0X2A Poisoning by antiallergic and antiemetic drugs, intentional self-harm, initial encounter (principal); R45.851 Suicidal ideations; F32.9 Major depressive disorder, single episode, unspecified; F12.90 Cannabis use, unspecified, uncomplicated; I95.9 Hypotension, unspecified; E87.6 Hypokalemia; R00.1 Bradycardia, unspecified; Y92.89 Other specified places as the place of occurrence of the external cause; Z82.49 Family history of ischemic heart disease and other diseases of the circulatory system; Z72.89 Other problems related to lifestyle
CPT/HCPCS: 36415; 80048; 80053; 80076; 80307; 80320; 81001; 82140; 82550; 82553; 83735; 83880; 84703; 85025; 85610; 85730; 93005; 93010; G0378; G0480; J7030

== ENCOUNTER 2018-06-17 10:32 | Emergency (ER) | payer OTHER ==
[2018-06-17 10:46] VITALS: BP 108/68
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
[2018-06-17] MEDS ORDERED: IBUPROFEN PO ONE (12:47)
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
== END 2018-06-17 15:07 | disposition home or self-care (01) ==
LOC: ED 10:32
DX: S16.1XXA Strain of muscle, fascia and tendon at neck level, initial encounter (principal); S29.9XXA Unspecified injury of thorax, initial encounter; D64.9 Anemia, unspecified; F17.200 Nicotine dependence, unspecified, uncomplicated; V87.7XXA Person injured in collision between other specified motor vehicles (traffic), initial encounter; Y93.89 Activity, other specified; Y92.410 Unspecified street and highway as the place of occurrence of the external cause; Y99.8 Other external cause status
CPT/HCPCS: 71046; 72040

== ENCOUNTER 2021-02-22 14:40 | Outpatient (CLI) | payer MEDICAID ==
[2021-02-22 16:25] LABS: Basophils % (Auto) 0.2 % (0.0-1.8); Eosinophils # (Auto) 0.1 K/mm3 (0.0-0.4); Eosinophils % (Auto) 0.7 % (0.0-4.3); Hematocrit 31.1 % (30.3-42.9); Hemoglobin 10.4 gm/dl (10.1-14.3); Lymphocytes # (Auto) 1.6 K/mm3 (1.2-5.4); Lymphocytes % (Auto) 15.1 % (13.4-35.0); Mean Corpuscular HGB Conc 33 % (30-34); Mean Corpuscular Volume 93 fl (79-97); Monocytes # (Auto) 0.6 K/mm3 (0.0-0.8); Monocytes % (Auto) 5.7 % (0.0-7.3); Platelet Count 322 K/mm3 (140-440); Red Blood Count 3.35 M/mm3 (3.65-5.03); Red Cell Distribution Width 14.5 % (13.2-15.2)
[2021-02-22 17:35] VITALS: BP 99/67
--- NOTE | 2021-02-22 18:11 | Ultrasound Report ---
Noted OB ultrasound INDICATION: Fall FINDINGS: Single live intrauterine in breech position. heart rate is 157 bpm. No sepa ration of the placenta or abnormality is seen. Placenta grade 1 low-lying and posterior. IMPRESSION: No definite separation or placental abruption. Placenta is posterior grade 1 and low lying. Normal fe arina heart rate. Signer Name: Harshal Zabala MD Signed: 02/22/2021 6:06 PM Workstation Name: [id number]
== END 2021-02-22 17:58 | disposition home or self-care (01) ==
LOC: TRG 14:40 → APU 14:41 → TRG 17:58
PROVIDERS: ATTEND Obstetrics & Gynecology
DX: O46.8X2 Other antepartum hemorrhage, second trimester (principal); Z3A.23 23 weeks gestation of pregnancy
CPT/HCPCS: 36415; 76815; 85025; 85460

== ENCOUNTER 2021-05-15 12:45 | Outpatient (CLI) | payer MEDICAID ==
[2021-05-15] MEDS ORDERED: LACTATED RINGERS 1,000 ML IV ONE (13:45)
[2021-05-15] MEDS ORDERED: ONDANSETRON 4 MG/2 ML INJ IV ONE (13:57)
[2021-05-15] MEDS ORDERED: LACTATED RINGERS 1,000 ML ONE ×2 (14:16→18:10)
[2021-05-15 16:55] LABS: Bacteria,Urine 1+ /HPF (Negative); Bilirubin,Urine NEG (Negative); Blood,Urine NEG (Negative); Color,Urine Amber (Yellow); Mucus,Urine 3+ /HPF
[2021-05-15 17:03] LABS: Alanine Aminotransferase 6 units/L (7-56); Albumin 3.6 g/dL (3.9-5); Blood Urea Nitrogen 11 mg/dL (7-17); Calcium 8.7 mg/dL (8.4-10.2); Hemolysis Index 10
[2021-05-15 17:04] LABS: BUN/Creatinine Ratio 28
[2021-05-15 17:36] VITALS: BP 104/63
[2021-05-15 18:18] LABS: Basophils % (Auto) 0.2 % (0.0-1.8); Eosinophils % (Auto) 0.2 % (0.0-4.3); Hematocrit 33.7 % (30.3-42.9); Hemoglobin 10.7 gm/dl (10.1-14.3); Lymphocytes # (Auto) 1.2 K/mm3 (1.2-5.4); Lymphocytes % (Auto) 13.4 % (13.4-35.0); Mean Corpuscular HGB Conc 32 % (30-34); Mean Corpuscular Volume 93 fl (79-97); Monocytes # (Auto) 0.6 K/mm3 (0.0-0.8); Monocytes % (Auto) 6.4 % (0.0-7.3); Platelet Count 267 K/mm3 (140-440); Red Blood Count 3.62 M/mm3 (3.65-5.03); Red Cell Distribution Width 15.7 % (13.2-15.2)
--- NOTE | 2021-05-15 19:58 | Ultrasound Report ---
US OB limited, US OB BPP wo non-stress INDICATION: SAMEER. TECHNIQUE: Transabdominal. COMPARISON: None available. FINDINGS: There is a single intrauterine . Heart Rate: 137 beats per minute. Position: cephalic. Amniotic Fluid Volume: normal Amniotic Fluid Index (SAMEER) in cm (if calculated): 13.7. Placenta: Grade1. Posterior left lateral placenta. Biophysical Profile: breathing movements: 0 movements:2 posture and tone:2 Qualitative amniotic fluid volume: 2 IMPRESSION: 1. Amniotic fluid is normal. 2. BPP is 6 of 8. No breathing movements identified. Signer Name: Magan Dempsey MD Signed: 05/15/2021 7:54 PM Workstation Name: [id number]
[2021-05-15] MEDS ORDERED: D5W/LACTATED RINGERS 1,000 ML IV SCH (20:19)
== END 2021-05-15 19:49 | disposition home or self-care (01) ==
LOC: TRG 12:45 → APU 12:46 → TRG 19:49
PROVIDERS: ATTEND Obstetrics & Gynecology
DX: O21.2 Late vomiting of pregnancy (principal); O62.9 Abnormality of forces of labor, unspecified; O26.893 Other specified pregnancy related conditions, third trimester; R10.9 Unspecified abdominal pain; Z3A.35 35 weeks gestation of pregnancy
CPT/HCPCS: 36415; 59025; 76815; 76819; 80053; 81001; 85025; 87086; 96365; 96375; J0690; J2405; J7120; 96360; 96361; 96374

== ENCOUNTER 2021-06-01 15:51 | Outpatient (CLI) | payer MEDICAID ==
[2021-06-01 16:18] VITALS: BP 107/64
== END 2021-06-01 17:08 | disposition home or self-care (01) ==
LOC: TRG 15:51 → APU 15:52 → TRG 17:08
PROVIDERS: ATTEND Obstetrics & Gynecology
DX: Z34.83 Encounter for supervision of other normal pregnancy, third trimester (principal); Z3A.37 37 weeks gestation of pregnancy
CPT/HCPCS: 59025